=== PATIENT | male | born 1955 | race Caucasian/White ===

== ENCOUNTER 2017-03-02 07:12 | Day surgery (SDC) | payer BC ==
[2017-03-02] MEDS ORDERED: GLYCOPYRROLATE INJ 0.4 MG/2 ML VIAL ONE (07:20)
[2017-03-02] MEDS ORDERED: NALOXONE HCL INJ/PF 0.4 MG/1 ML SDV ONE (07:20)
[2017-03-02] MEDS ORDERED: ONDANSETRON HCL INJ/PF 4 MG/2 ML SDV ONE (07:20)
[2017-03-02] MEDS ORDERED: EPINEPHRINE INJ 1 MG/10 ML DISP.SYRIN ONE (07:22)
[2017-03-02] MEDS ORDERED: GLUCAGON,HUMAN RECOMB 1 MG INJ ONE (07:22)
[2017-03-02] MEDS ORDERED: FLUMAZENIL INJ 0.5 MG/5 ML VIAL ONE (07:22)
[2017-03-02] MEDS: MIDAZOLAM 2 MG/2 ML INJ ONE ×3 (07:40→07:52)
[2017-03-02] MEDS: FENTANYL CITRATE INJ/PF 100 MCG/2 ML AMPUL ONE ×2 (07:42→08:07)
--- NOTE | 2017-03-02 08:27 | Operative Report ---
Operative Report DATE OF SURGERY: 03/02/17 PREOPERATIVE DIAGNOSIS: Personal history colon polyps POSTOPERATIVE DIAGNOSIS: Same with multiple polyps of the ascending colon, transverse colon and rectum OPERATION: 1. Total colonoscopy to cecum. 2. Right colon polypectomy, transverse colon polypectomy and rectal polypectomy 2 SURGEON: KESHIA HSU ANESTHESIA: Moderate Sedation TISSUE REMOVED OR ALTERED: Multiple polyps COMPLICATIONS: None ESTIMATED BLOOD LOSS: Scant INTRAOPERATIVE FINDINGS: See below PROCEDURE: Obtaining informed consent the patient was taken from the preoperative holding area to the main endoscopy suite where monitoring devices were attached to the patient. Plan and surgical timeout were conducted The patient was placed in the left lateral decubitus position with knees to chest. A perianal examination was performed. There was no visible or palpable anorectal pathology. Sphincter tone was felt to be normal. The flexible adult colonoscope was advanced through the anal rectal canal, all the way to the cecum. Utilization of the cecum was achieved and the ileocecal valve, the appendiceal orifice and transillumination of the anterior abdominal wall. This was an excellent study on the well-prepped bowel. The colonoscope was withdrawn slowly and methodically checked and the mucosa carefully. There was no evidence of tumor, stricture, bleeding; Of note in the ascending colon was a polyp, approximately 3-4 mm diameter which was removed using a hot snare device on medium heat strength. Small residual fragment was left hanging on the mucosa which will likely slough. There were 3 additional polyps one in the transverse colon, and 2 in the him all small, and all removed using a hot snare device. Specimens were sent as transverse colon polyp and rectal polyps 2. 4 polyps were removed. There was negligible bleeding at the polypectomy sites In the mid to lower rectum area of hyperpigmentation, possibly consistent with previous ink staining versus bowel prep artifact versus effective enema. No mucosal pathology however no biopsy was obtained only photographs. There was no evidence of diverticuloses. The scope was slowly withdrawn through the anal rectal canal. Complete visualization of the rectum was achieved with photodocumentation. The scope was withdrawn to the patient's anus. The patient tolerated the procedure well and was taken to the recovery area in stable condition. The patient will be due for surveillance colonoscopy in 3 years.
--- NOTE | 2017-03-02 08:28 | PDOC DISCHARGE SUMMARY ---
Discharge Summary (SDC) - Discharge Final Diagnosis: Multiple polyps Date of Surgery: 03/02/17 Discharge Date: 03/02/17 Condition: Good Treatment or Instructions: [facility] [place] [id number] POST ENDOSCOPY DISCHARGE INSTRUCTIONS 1. Diet: Start clear liquids that a regular diet as tolerated. 2. Resume all preoperative medications. All oral anticoagulants and aspirins can be resumed 24 hours after procedure. 3. If a polypectomy was performed some bleeding per rectum may occur. This should stop within 3 days. If not, please contact the office. 4. If you had a colonoscopy you may experience some bloating and delayed return of normal bowel function for several days, your regular bowel movement pattern should resume within a week. 5. Please contact [facility] at to make an appointment with Dr. Santos for 1 to 3 weeks following procedure. 6. If you have any questions or concerns regarding your care,treatment plan or follow up, please contact our office. 7. Per clinical guidelines we recommend you undergo a repeat colonoscopy in 3 years. Referrals: JULITO CAVAZOS PA-C [Primary Care Provider] - Discharge Diet: As Tolerated Discharge Activity: Activity As Tolerated Home Care Assistance: None Needed Report the Following to Your Physician Immediately: Shortness of Breath, Increase in Pain, Fever over 101 Degrees
[2017-03-02 09:19] VITALS: BP 129/80
== END 2017-03-02 09:20 | disposition home or self-care (01) ==
LOC: END 07:12
PROVIDERS: ATTEND Surgery
PROC: 0DBP8ZX Excision of Rectum, Via Natural or Artificial Opening Endoscopic, Diagnostic (ICD-10-PCS; 2017-03-02)
PROC: 0DBK8ZX Excision of Ascending Colon, Via Natural or Artificial Opening Endoscopic, Diagnostic (ICD-10-PCS; principal; 2017-03-02 07:30)
PROC: 0DBL8ZX Excision of Transverse Colon, Via Natural or Artificial Opening Endoscopic, Diagnostic (ICD-10-PCS; 2017-03-02 07:30)
DX: Z12.11 Encounter for screening for malignant neoplasm of colon (principal); D12.2 Benign neoplasm of ascending colon; D12.3 Benign neoplasm of transverse colon; K63.5 Polyp of colon; I10 Essential (primary) hypertension; E11.9 Type 2 diabetes mellitus without complications; R10.9 Unspecified abdominal pain; Z79.84 Long term (current) use of oral hypoglycemic drugs; Z79.82 Long term (current) use of aspirin; Z79.899 Other long term (current) drug therapy
CPT/HCPCS: 45380; 45385; 82962; 88305 ×2; J2250; J3010; J0171; J1610; J2310; J2405; J3490

== ENCOUNTER 2017-04-29 11:49 | Emergency (ER) | payer BC ==
--- NOTE | 2017-04-29 13:03 | RADIOLOGY REPORT (SQ) ---
EXAM DESCRIPTION: FOOT RIGHT COMPLETE COMPLETED DATE/TIME: 04/29/2017 12:50 pm REASON FOR STUDY: ?PW r foot pain COMPARISON: None. NUMBER OF VIEWS: Three views. TECHNIQUE: AP, lateral and oblique radiographic images acquired of the right foot. LIMITATIONS: None. FINDINGS: MINERALIZATION: Normal. BONES: No acute fracture or dislocation. No worrisome bone lesions. Asymmetric cortical thickening involving the medial aspect of the 3rd and 4th metatarsals likely sequela to chronic stress change. JOINTS: No effusions. SOFT TISSUES: Vascular calcifications. No soft tissue swelling. No foreign body. OTHER: No other significant finding. IMPRESSION: NO RADIOGRAPHIC EVIDENCE OF ACUTE INJURY. CHRONIC CHANGES ABOVE. TECHNICAL DOCUMENTATION: JOB ID: [id number] [employer]- All Rights Reserved
[2017-04-29] MEDS ORDERED: CEPHALEXIN 500 MG CAPSULE PO ONE (13:52)
[2017-04-29] MEDS ORDERED: SULFAMETHOXAZOLE/TRIMETHOPRIM 800-160 MG TABLET PO ONE (13:52)
[2017-04-29] MEDS ORDERED: DIPH/PERTUSS(ACELL)/TETANUS VAC/PF 0.5 ML SYR (>=10YO) IM ONE (13:53)
--- NOTE | 2017-04-29 13:55 | ER Document Report ---
HPI - HPI Patient complains to provider of: r foot pain Onset: Other - 3 days Onset/Duration: Worse Quality of pain: Achy Pain Level: 3 Context: Patient presents complaining of right foot pain for the past 3 days. Patient denies any injury to his foot. Patient complains of pain with ambulation. Associated Symptoms: Fever, Other - Right foot pain Exacerbated by: Standing, Movement, Walking Relieved by: Denies Similar symptoms previously: No Recently seen / treated by doctor: No - ROS ROS below otherwise negative: Yes Systems Reviewed and Negative: Yes All other systems reviewed and negative - CONSTITUTIONAL Constitutional: DENIES: Fever, Chills - GASTROINTESTINAL Gastrointestinal: DENIES: Nausea - REPRODUCTIVE Reproductive: DENIES: : - MUSCULOSKELETAL Musculoskeletal: REPORTS: Extremity pain - Right foot, Swelling - DERM Skin Color: Erythema Past Medical History - General Information source: Patient - Social History Smoking Status: Never Smoker Chew tobacco use (# tins/day): No Frequency of alcohol use: None Drug Abuse: None Occupation: [employer] Lives with: Spouse/Significant other Family History: Reviewed & Not Pertinent Patient has suicidal ideation: No Patient has homicidal ideation: No - Past Medical History Cardiac Medical History: Reports: Hx Hypertension Denies: Hx Congestive Heart Failure, Hx Coronary Artery Disease, Hx Heart Attack - SKIPS BEATS WHEN STRESSED, Hx Heart Murmur Pulmonary Medical History: Denies: Hx Asthma, Hx Bronchitis, Hx COPD, Hx Pneumonia, Hx Tuberculosis Neurological Medical History: Denies: Hx Cerebrovascular Accident, Hx Seizures Endocrine Medical History: Reports: Hx Diabetes Mellitus Type 2 Renal/ Medical History: Denies: Hx Peritoneal Dialysis Malignancy Medical History: Reports Hx Colorectal Cancer GI Medical History: Denies: Hx Hepatitis, Hx Hiatal Hernia, Hx Ulcer Musculoskeltal Medical History: Denies Hx Arthritis Infectious Medical History: Denies: Hx Hepatitis Past Surgical History: Reports: Hx Abdominal Surgery. Denies: Hx Pacemaker - Immunizations Hx Diphtheria, Pertussis, Tetanus Vaccination: No Vertical Provider Document - CONSTITUTIONAL Agree With Documented VS: Yes Exam Limitations: No Limitations General Appearance: WD/WN, No Apparent Distress - INFECTION CONTROL TRAVEL OUTSIDE OF THE [place] IN LAST 30 DAYS: No - HEENT HEENT: Atraumatic, Normocephalic - NECK Neck: Normal Inspection - RESPIRATORY Respiratory: Breath Sounds Normal O2 Sat by Pulse Oximetry: 96 - CARDIOVASCULAR Cardiovascular: Regular Rate, Regular Rhythm Pulses: Normal: Dorsalis pedis - MUSCULOSKELETAL/EXTREMETIES Musculoskeletal/Extremeties: MAEW, Tender - Right foot tenderness to plantar surface with swelling and erythema. Patient with expressible purulent drainage from what looks to be a puncture wound., Edema - NEURO Level of Consciousness: Awake, Alert, Appropriate Motor/Sensory: No Motor Deficit - DERM Integumentary: Warm, Dry Notes: Erythema with purulent drainage from puncture wound to plantar surface of right foot Course - Re-evaluation Re-evalutation: 04/29/17 13:55 After foot was soaked, puncture wound was explored, 2 cm wood splinter removed from foot. Patient does acknowledge that he has been walking barefoot on his floor from which he recently pulled up the carpet and has been walking on plywood. Patient with 2 additional areas that are suspicious for puncture wound. Will ultrasound foot to evaluate for any other retained foreign bodies. 04/29/17 16:[address] Ordonez regarding patient's ultrasound report. Recommends consultation with hospitalist 04/29/17 16:[address] Pandya regarding patient presentation, states that she cannot make a decision whether patient requires admission or outpatient treatment without having additional information such as white blood cell count and renal function testing. Advises repeat consultation with Dr. Ordonez 04/29/17 17:37 Dr. Ordonez to bedside, recommends incision and drainage procedure and states patient may be discharged home - Vital Signs Vital signs: Temp Pulse Resp BP Pulse Ox 98.1 F 80 14 130/79 H 96 04/29/17 11:55 04/29/17 11:55 04/29/17 11:55 04/29/17 11:55 04/29/17 11:55 - Laboratory Result Diagrams: 04/29/17 16:30 04/29/17 16:30 Laboratory results interpreted by me: 04/29/17 18:10 Labs- Entire Visit 04/29/17 04/29/17 16:30 16:30 WBC 11.7 H RBC 5.01 Hgb 15.1 Hct 44.6 MCV 89 MCH 30.2 MCHC 33.9 RDW 12.8 Plt Count 280 Seg Neutrophils % 56.7 Lymphocytes % 30.5 Monocytes % 7.8 Eosinophils % 4.5 Basophils % 0.5 Absolute Neutrophils 6.6 Absolute Lymphocytes 3.6 Absolute Monocytes 0.9 Absolute Eosinophils 0.5 Absolute Basophils 0.1 Sodium 140.8 Potassium 4.1 Chloride 104 Carbon Dioxide 23 Anion Gap 14 BUN 14 Creatinine 0.86 Est GFR ( Amer) > 60 Est GFR (Non-Af Amer) > 60 Glucose 106 Calcium 9.9 Total Bilirubin 0.5 Direct Bilirubin 0.3 Neonat Total Bilirubin Not Reportable Neonat Direct Bilirubin Not Reportable Neonat Indirect Bili Not Reportable AST 21 ALT 38 Alkaline Phosphatase 79 Total Protein 7.2 Albumin 4.4 - Diagnostic Test Radiology reviewed: Reports reviewed Procedures - Incision and Drainage Right Foot Type: Simple Anesthetic type: 1% Lidocaine Blade size: 11 I&D procedure: Other - surgical scrub Incision Method: Incision made by scalpel Amount/type of drainage: Small amount of purulent drainage Discharge - Discharge Clinical Impression: Elevated blood pressure reading, Foreign body in subcutaneous tissue, Foot abscess, right Condition: Stable Disposition: HOME, SELF-CARE Instructions: Abscess ([facility]), Cephalexin ([facility]), Oral Narcotic Medication ([facility]), Post Incision and Drainage, Trimethoprim-Sulfa ([facility]), Warm Packs ([facility]) Additional Instructions: Return immediately for any new or worsening symptoms Followup with your primary care provider, call tomorrow to make a followup appointment Wound culture is pending, we will call if you need any different treatment Return immediately for any increased pain, increased redness, increased swelling , fever or any concerning symptoms Prescriptions: Cephalexin Monohydrate [Keflex 500 mg Capsule] 500 mg PO Q6H 7 Days capsule Hydrocodone/Acetaminophen [[place] 5-325 Tablet] 1 each PO Q6 PRN #12 tablet PRN Reason: Sulfamethoxazole/Trimethoprim [Bactrim Ds Tablet] 1 each PO BID #20 tablet Forms: Elevated Blood Pressure, Return to Work Referrals: JULITO CAVAZOS PA-C [Primary Care Provider] - Follow up tomorrow SHARRON SANCHEZ MD [ACTIVE STAFF] - Follow up as needed
--- NOTE | 2017-04-29 15:45 | RADIOLOGY REPORT (SQ) ---
EXAM DESCRIPTION: U/S EXTREMITY NONVASCULAR COMP COMPLETED DATE/TIME: 04/29/2017 3:24 pm REASON FOR STUDY: ?wood FB to foot COMPARISON: None. TECHNIQUE: Dynamic and static grayscale images acquired of the localized site of clinical concern an d recorded on PACS. Additional selected color Doppler and spectral images recorded. SITE OF CONCERN: Plantar foot. LIMITATIONS: None. FINDINGS: SKIN AND SUBCUTANEOUS TISSUES: Ill-defined hypoechoic region corresponding to area of conc lalo measuring 8 x 8 x 6 mm. No internal color flow. DEEP SOFT TISSUES/MUSCLES: No masses. No fluid collections. No edema. VASCULAR: No increased or decreased vascularity. No occlusions. OTHER: No other significant finding. IMPRESSION: 8 MM HYPOECHOIC REGION CORRESPONDING TO AREA OF CONCERN MAY REPRESENT PHLEGMON/DEVELOPIN G ABSCESS. TECHNICAL DOCUMENTATION: JOB ID: [id number] [employer]- All Rights Reserved
[2017-04-29 16:47] LABS: ABSOLUTE BASOPHILS # (AUTO) 0.1 10^3/uL (0.0-0.2); ABSOLUTE EOSINOPHILS # (AUTO) 0.5 10^3/uL (0.0-0.6); ABSOLUTE LYMPHOCYTES (AUTO) 3.6 10^3/uL (0.5-4.7); ABSOLUTE MONOCYTES (AUTO) 0.9 10^3/uL (0.1-1.4); ABSOLUTE NEUT (AUTO) 6.6 10^3/uL (1.7-8.2); BASOPHILS % (AUTO) 0.5 % (0-2); EOSINOPHILS % (AUTO) 4.5 % (0-6); HEMATOCRIT 44.6 % (37.9-51.0); HEMOGLOBIN 15.1 g/dL (13.5-17.0); LYMPHOCYTES % (AUTO) 30.5 % (13-45); MEAN CORPUSCULAR HEMOGLOBIN 30.2 pg (27.0-33.4); MEAN CORPUSCULAR HGB CONC 33.9 g/dL (32.0-36.0); MEAN CORPUSCULAR VOLUME 89 fl (80-97); MONOCYTES % (AUTO) 7.8 % (3-13); PLATELET COUNT 280 10^3/uL (150-450); RED BLOOD COUNT 5.01 10^6/uL (4.35-5.55); RED CELL DISTRIBUTION WIDTH 12.8 % (11.5-14.0); SEGMENTED NEUTROPHILS % (AUTO) 56.7 % (42-78); TOTAL CELLS COUNTED % (AUTO) 100 %; WHITE BLOOD COUNT 11.7 10^3/uL (4.0-10.5)
[2017-04-29 17:04] LABS: ALANINE AMINOTRANSFERASE 38 U/L (21-72); ALBUMIN 4.4 g/dL (3.5-5.0); ALKALINE PHOSPHATASE 79 U/L (38-126); ANION GAP 14 (5-19); ASPARTATE AMINO TRANSFERASE 21 U/L (17-59); BILIRUBIN,DIRECT 0.3 mg/dL (0.0-0.4); BILIRUBIN,TOTAL 0.5 mg/dL (0.2-1.3); BLOOD UREA NITROGEN 14 mg/dL (7-20); CALCIUM 9.9 mg/dL (8.4-10.2); CARBON DIOXIDE 23 mmol/L (22-30); CHLORIDE 104 mmol/L (98-107); GLUCOSE 106 mg/dL (75-110); POTASSIUM 4.1 mmol/L (3.6-5.0); SODIUM 140.8 mmol/L (137-145); TOTAL PROTEIN 7.2 g/dL (6.3-8.2)
[2017-04-29 18:38] VITALS: BP 146/87
== END 2017-04-29 18:30 | disposition home or self-care (01) ==
LOC: ER 11:49
DX: S90.851A Superficial foreign body, right foot, initial encounter (principal); L02.611 Cutaneous abscess of right foot; W45.8XXA Other foreign body or object entering through skin, initial encounter; M79.671 Pain in right foot; I10 Essential (primary) hypertension; E11.9 Type 2 diabetes mellitus without complications
CPT/HCPCS: 36415; 76881; 80053; 85025; 87070; 87077; 87186; 87205; 90471; 90715; 99284

== ENCOUNTER 2017-05-04 23:44 | Emergency (ER) | payer BC ==
--- NOTE | 2017-05-05 03:42 | ER Document Report ---
HPI - HPI Patient complains to provider of: fever Pain Level: 1 Context: Patient is a 61-year-old male who presents the ED with a chief complaint of fever of 99. Patient states that he was told to return to the ER with any fevers after an I&D that was performed on the 6. Denies any pain. - CONSTITUTIONAL Constitutional: DENIES: Fever, Chills - EENT EENT: DENIES: Sore Throat, Ear Pain, Eye problems - NEURO Neurology: DENIES: Headache - CARDIOVASCULAR Cardiovascular: DENIES: Chest pain - RESPIRATORY Respiratory: DENIES: Trouble Breathing, Coughing - GASTROINTESTINAL Gastrointestinal: DENIES: Abdominal Pain, Black / Bloody Stools - URINARY Urinary: DENIES: Dysuria, Urgency, Frequency - REPRODUCTIVE Reproductive: DENIES: : - MUSCULOSKELETAL Musculoskeletal: REPORTS: Extremity pain - FOOT Past Medical History - Social History Smoking Status: Smoker,Current Status Unk Chew tobacco use (# tins/day): No Frequency of alcohol use: None Drug Abuse: None Family History: Reviewed & Not Pertinent Patient has suicidal ideation: No Patient has homicidal ideation: No - Past Medical History Cardiac Medical History: Reports: Hx Hypertension Denies: Hx Congestive Heart Failure, Hx Coronary Artery Disease, Hx Heart Attack - SKIPS BEATS WHEN STRESSED, Hx Heart Murmur Pulmonary Medical History: Denies: Hx Asthma, Hx Bronchitis, Hx COPD, Hx Pneumonia, Hx Tuberculosis Neurological Medical History: Denies: Hx Cerebrovascular Accident, Hx Seizures Endocrine Medical History: Reports: Hx Diabetes Mellitus Type 2 Renal/ Medical History: Denies: Hx Peritoneal Dialysis Malignancy Medical History: Reports Hx Colorectal Cancer GI Medical History: Denies: Hx Hepatitis, Hx Hiatal Hernia, Hx Ulcer Musculoskeltal Medical History: Denies Hx Arthritis Infectious Medical History: Denies: Hx Hepatitis Past Surgical History: Reports: Hx Abdominal Surgery. Denies: Hx Pacemaker - Immunizations Hx Diphtheria, Pertussis, Tetanus Vaccination: No Vertical Provider Document - CONSTITUTIONAL Agree With Documented VS: Yes Notes: PHYSICAL EXAM GENERAL: Alert, interacts well. EXTREMITIES: Moves all 4 extremities spontaneously. No edema, radial and dorsalis pedis pulses 2/4 bilaterally. No cyanosis. NEUROLOGICAL: Alert and oriented x4. Normal speech. PSYCH: Normal affect, normal mood. SKIN: Warm, dry, normal turgor. No rashes or lesions noted. - INFECTION CONTROL TRAVEL OUTSIDE OF THE [place] IN LAST 30 DAYS: No - RESPIRATORY O2 Sat by Pulse Oximetry: 96 Course - Re-evaluation Re-evalutation: 05/05/17 03:42 Patient is a 61-year-old male is hemodynamic stable, no acute distress and afebrile. No evidence of residual infection. Patient denies any pain and is afebrile stable for discharge - Vital Signs Vital signs: Temp Pulse Resp BP Pulse Ox 98.2 F 97 16 118/77 96 05/05/17 03:39 05/05/17 03:39 05/05/17 03:39 05/05/17 03:39 05/05/17 03:39 Discharge - Discharge Clinical Impression: Wound check, abscess Condition: Good Disposition: HOME, SELF-CARE Instructions: Post Incision and Drainage Referrals: JULITO CAVAZOS PA-C [Primary Care Provider] - Follow up as needed
[2017-05-05 04:02] VITALS: BP 128/77
== END 2017-05-05 03:59 | disposition home or self-care (01) ==
LOC: ER 23:44
DX: Z48.817 Encounter for surgical aftercare following surgery on the skin and subcutaneous tissue (principal); L02.91 Cutaneous abscess, unspecified; R50.9 Fever, unspecified; M79.673 Pain in unspecified foot; E11.9 Type 2 diabetes mellitus without complications; I10 Essential (primary) hypertension; Z85.048 Personal history of other malignant neoplasm of rectum, rectosigmoid junction, and anus
CPT/HCPCS: 99282

== ENCOUNTER 2018-12-20 07:27 | Day surgery (SDC) | payer BC, MEDICARE ==
[~2018-12-20 07:27] MED LIST: DIPHENHYDRAMINE HCL 50 MG/ML VIAL ONE; EPINEPHRINE INJ 1 MG/10 ML DISP.SYRIN ONE; FENTANYL CITRATE INJ/PF 100 MCG/2 ML AMPUL ONE; FLUMAZENIL INJ 0.5 MG/5 ML VIAL ONE; GLUCAGON,HUMAN RECOMB 1 MG INJ ONE; MIDAZOLAM 2 MG/2 ML INJ ONE; NALOXONE HCL INJ/PF 0.4 MG/1 ML SDV ONE; ONDANSETRON HCL INJ/PF 4 MG/2 ML SDV ONE
[2018-12-20] MEDS ORDERED: FENTANYL CITRATE INJ/PF 50 MCG/1 ML 50 ML SDV IV ONE ×3 (07:38→07:52)
[2018-12-20] MEDS ORDERED: MIDAZOLAM 2 MG/2 ML INJ IV ONE ×3 (07:38→07:50)
--- NOTE | 2018-12-20 08:19 | Discharge Summary ---
Discharge Summary (SDC) - Discharge Final Diagnosis: A sending colon polyp; internal hemorrhoids. Date of Surgery: 12/20/18 Discharge Date: 12/20/18 Condition: Good Treatment or Instructions: [facility] [place] [id number] POST ENDOSCOPY DISCHARGE INSTRUCTIONS 1. Diet: Start clear liquids that a regular diet as tolerated. 2. Resume all preoperative medications. All oral anticoagulants and aspirins can be resumed 24 hours after procedure. 3. If a polypectomy was performed some bleeding per rectum may occur. This should stop within 3 days. If not, please contact the office. 4. If you had a colonoscopy you may experience some bloating and delayed return of normal bowel function for several days, your regular bowel movement pattern should resume within a week. 5. Please contact [facility] at to make an appoint ment with Dr. Santos for 1 to 3 weeks following procedure. 6. If you have any questions or concerns regarding your care,treatment plan or follow up, please contact our office. 7. Per clinical guidelines we recommend you undergo a repeat colonoscopy in 3 years Referrals: JULITO CAVAZOS PA-C [Primary Care Provider] - Discharge Activity: Activity As Tolerated Activities Provided by Home Health Agency: Jail Report the Following to Your Physician Immediately: Shortness of Breath, In crease in Pain, Fever over 101 Degrees
--- NOTE | 2018-12-20 08:27 | Operative Report ---
Operative Report DATE OF SURGERY: 12/20/18 PREOPERATIVE DIAGNOSIS: Personal history of colon polyps; remote history of tub ulovillous adenoma with adenocarcinoma POSTOPERATIVE DIAGNOSIS: 1. Internal hemorrhoids. 2. Ascending colon polyp OPERATION: 1. Total colonoscopy to cecum with photodocumentation. 2. Ascending colon polypectomy with hot snare device SURGEON: KESHIA HSU ANESTHESIA: Moderate Sedation TISSUE REMOVED OR ALTERED: Right colon polyp COMPLICATIONS: None ESTIMATED BLOOD LOSS: Scant INTRAOPERATIVE FINDINGS: See below PROCEDURE: Obtaining informed consent the patient was taken from the preoperative holding area to the main endoscopy suite where monitoring devices were attached to the patient. Plan and surgical timeout were conducted The patient was placed in the left lateral decubitus position with knees to chest. A perianal examination was performed. There was no visible or palpable anorectal pathology. Sphincter tone was felt to be normal. The flexible adult colonoscope was advanced through the anal rectal canal, all the way to the cecum. Visualization of the cecum was achieved and the ileocecal valve, the appendiceal orifice and transillumination of the anterior abdominal wall. This was an excellent study on the well-prepped bowel. The colonoscope was withdrawn slowly and methodically checked and the mucosa carefully. There was no evidence of tumor, stricture, bleeding; a; with a small 4 to 5 mm sessile polyp, photographed, removed with a hot snare device, with specimen retrieval. The polypectomy site there is satisfactory cauterization. Photo taken. There was no evidence of diverticuloses. The scope was slowly withdrawn through the anal rectal canal. Complete visualization of the rectum was achieved with photodocumentation. The scope was retroflexed in the anorectal canal. Internal hemorrhoids appreciated. The scope was withdrawn to the patient's anus. The patient tolerated the procedure well and was taken to the recovery area in stable condition. Per surveillance guidelines, patient be an appropriate candidate for follow-up colonoscopy in approximately 3 years
[2018-12-20 09:03] VITALS: BP 132/91
== END 2018-12-20 09:06 | disposition home or self-care (01) ==
LOC: END 07:27
PROVIDERS: ATTEND Surgery
DX: Z12.11 Encounter for screening for malignant neoplasm of colon (principal); D12.2 Benign neoplasm of ascending colon; K64.8 Other hemorrhoids; Z86.010 Personal history of colon polyps; I10 Essential (primary) hypertension; Z79.84 Long term (current) use of oral hypoglycemic drugs; Z79.82 Long term (current) use of aspirin
CPT/HCPCS: 45385; 82962; 88305 ×2; J2250; J3010; J0171; J1200; J1610; J2310; J2405; J3490